=== PATIENT | male | born 1990 | race Hispanic/Latino ===

== ENCOUNTER 2018-01-15 09:47 | Emergency (ER) | payer OTHER, SELFPAY ==
[2018-01-15 09:56] VITALS: BP 141/81; PULSE 87; RESP 14; O2SAT 99; BMI 25.1
--- NOTE | 2018-01-15 10:02 | ED.WEAKNESS ---
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 Patient states approximately 1 hr prior to his arrival here in the ER he stood up from sitting down and had a sudden onset of left sided both leg and arm numbness. He did not describe any weakness. He states that his left hand feels ?cold? States that he had something similar but only in his left leg a while ago after performing a physical fitness test for the [employer]. He reports that over the past hour his symptoms have not changed. Denies any headache. Denies any balance issues. Has not tried anything for it. Related Data Allergies Allergy/AdvReac Type Severity Reaction Status Date / Time No Known Drug Allergies Allergy Verified 01/15/18 09:56 Review of Systems Constitutional Denies body ache(s), Denies chills, Denies fatigue, Denies fever(s), Denies headache(s) and Denies weakness Eyes Denies blurry vision, Denies diplopia, Denies irritation and Denies loss of vision ENT Ears, Nose, Mouth, and Throat: Denies vertigo, Denies dizziness, Denies facial pain, Denies headache(s), Denies nasal congestion, Denies disequilibrium and Denies sore throat Cardiovascular Denies chest pain, Denies syncope, Denies palpitations and Denies dyspnea Respiratory Denies cough and Denies dyspnea Gastrointestinal Gastrointestinal: Denies abdominal pain, Denies constipation, Denies diarrhea, Denies nausea and Denies vomiting Genitourinary Denies dysuria and Denies flank pain Musculoskeletal Denies back pain, Denies myalgias, Denies arthralgias, Denies joint swelling, Denies muscle cramps, Denies muscle weakness, Reports numbness and Denies stiffness Integumentary/Breasts Denies lesions and Denies rash Neurologic Denies confusion, Denies vertigo, Denies dizziness, Denies syncope, Denies headache(s), Denies focal weakness, Denies loss of vision, Denies memory loss, Reports numbness, Denies convulsions, Denies seizure-like activity, Reports sensory deficit (Numbness left arm and left leg), Denies disequilibrium and Denies weakness Psychiatric Denies anxiety, Denies confusion and Denies memory loss Endocrine Denies fatigue and Denies palpitations Hematologic/Lymphatic Denies easy bleeding and Denies easy bruising Allergic/Immunologic Denies urticaria [facility] Social History Smoking Status: Current every day smoker Exam Initial Vital Signs Initial Vital Signs: Vital Signs Pulse Rate 87 01/15/18 09:56 Respiratory Rate 14 01/15/18 09:56 Blood Pressure 141/81 H 01/15/18 09:56 Pulse Oximetry 99 01/15/18 09:56 Const General: cooperative, healthy appearing, comfortable, well developed, well groomed and No acute distress Nutritional Appearance: average body habitus Orientation: alert, awake and oriented x3 HENMT Head: normal to inspection, normocephalic and atraumatic Ears: hearing grossly normal bilaterally Nose: external nose normal Eyes General: appearance normal, both eyes and all related structures Pupils: PERRL EOM: EOM intact bilaterally Resp Effort & Inspection: normal respiratory effort Auscultation: clear to auscultation bilaterally Cardio Rate: regular rate Rhythm: regular rhythm Pulses: radial pulses present GI Inspection: non-distended Palpation: soft, No firm and No tender Back/Spine/Pelvis Back: normal to inspection, No back tenderness and No CVA tenderness Skin Lesions: no lesions Rashes: no rashes Neuro General: alert, awake, oriented x3, tone normal, moves all extremities, no meningeal signs and CN's II-XI intact bilaterally Cranial Nerves: CN's II-XI intact bilaterally and PERRL Cognition: normal cognition Speech: speech normal Other: Patient with difficulty doing heel to tee with his left lower extremity. Difficulty doing finger to nose with his left upper extremity. Strength 5/5 right upper and right lower extremity strength 4/5 left upper and left lower extremity. Decreased sensation to light touch left upper extremity left lower extremity. No facial changes with sensation. Patient able to stand. Romberg's negative. Extrem General: normal to inspection and capillary refill normal Psych Appearance: grossly normal, well kempt and not disheveled Scores NIH Stroke Scale Level of Conciousness: Alert, keenly responsive Ask month/age: Answers both questions correctly. Open/close eyes, close hand: Performs both tasks correctly Best gaze horizontal: Normal Visual shoemaker: No visual loss Facial palsy: Normal symetrical movement Left arm drift: No drift for full 10 sec Right arm drift: No drift for full 10 sec Left leg drift: Drifts down, not to bed Right leg drift: No drift for full 10 sec Limb ataxia: Present in two limbs Sensory on face/arms/legs: Mild to moderate sensory loss, can tell touch Best language: No aphasia, normal Dysarthria: Normal Extinction or inattention: No abnormality Total NIH Stroke scale score: 4 Course Orders Ordered: ED Orders 01/15/18 10:08 Basic Metabolic Panel Stat Complete Blood Count AUTO DIFF Stat Partial Thromboplastin Time Stat Prothrombin Time INR Stat 01/15/18 10:10 CT angio head and neck Stat 01/15/18 10:11 CT angio head and neck Stat Vital Signs - 8 hr 01/15/18 09:56 01/15/18 10:10 01/15/18 10:14 Temperature 98.3 F Pulse Rate 87 81 75 Respiratory Rate 14 18 18 Blood Pressure 141/81 H Blood Pressure [Left Arm] 136/89 H 128/89 H Pulse Oximetry 99 96 98 01/15/18 11:05 Temperature Pulse Rate 76 Respiratory Rate 15 Blood Pressure Blood Pressure [Left Arm] 124/94 H Pulse Oximetry 100 MDM - Weakness Lab Data Attestation: I reviewed the patient's lab results. Result diagrams: 01/15/18 10:08 01/15/18 10:08 Lab Results 01/15/18 01/15/18 01/15/18 Range/Units 10:08 10:08 10:08 WBC 9.3 (4.5-11.0) X10^3/uL RBC 5.04 (4.5-5.9) X10^6/uL Hgb 15.8 (13.5-17.5) g/dL Hct 45.1 (41-53) % MCV 89.6 (80-100) fL MCH 31.4 (26-34) PG MCHC 35.1 (30-36) % RDW 12.6 (11.6-14.8) % Plt Count 245 (150-400) X10^3/uL Neut % (Auto) 60.4 (50-75) % Lymph % (Auto) 30.0 (25-40) % [place] % (Auto) 6.5 (3-14) % Eos % (Auto) 2.4 (2-4) % Baso % (Auto) 0.7 (0-2) % Neut # (Auto) 5600 (4358-7266) /uL PT 13.2 H (10.1-12.7) SECONDS INR 1.2 (0.9-1.3) APTT 34 (26.4-36.2) SECONDS Sodium 138 (137-145) mmol/L Potassium 3.8 (3.4-5.1) mmol/L Chloride 101 (98-107) mmol/L Carbon Dioxide 27 (22-32) mmol/L BUN 16 (9-20) mg/dL Creatinine 0.90 (0.66-1.25) mg/dL Estimated GFR > 60.0 (>60) mL/min BUN/Creatinine Ratio 17.8 (6-22) Glucose 101 H (70-100) mg/dL Calcium 9.5 (8.4-10.2) mg/dL Imaging Data CT scan - head: Radiologist's impression: PROCEDURE: CT ANGIO HEAD AND NECK INDICATIONS: Left-sided weakness concern for CVA TECHNIQUE: Pre-contrast 4.5 mm thick sections acquired from the foramen magnum to the vertex. After the administration of intravenous contrast, 1 mm thick sections acquired from the aortic arch through the [place] of [place]. Post-contrast 4.5 mm thick sections then re-acquired from the foramen magnum to the vertex. 3-dimensional jpjqzwa-fcbalkgfd-iitksmtauc (MIP) and/or volume rendering reformats were acquired of the central intracranial vasculature and neck separately. COMPARISON: None. FINDINGS: Image quality: Excellent. BRAIN: CSF spaces: Ventricles are normal in size and shape. Basal cisterns are patent. No extra-axial fluid collections. There is prominent CSF space in the right posterior fossa behind the right cerebellum, most likely a arachnoid cyst. Brain: No midline shift. No intracranial bleeds or masses. Mahmood-white matter interface appears intact. Skull and face: Calvarium and facial bones appear intact, without suspicious lesions. Orbits appear normal. Sinuses: Sinuses and mastoids are clear. HEAD CT ANGIOGRAPHY: Anterior circulation: Intracranial internal carotid arteries are normal in size and flow. The flow within the paired anterior cerebral arteries is normal and symmetric. The flow within the middle cerebral arteries is normal and symmetric. The anterior communicating artery is seen. No aneurysms are seen. Posterior circulation: Visualized portions of the vertebral arteries demonstrate normal caliber, and join to form a normal appearing basilar artery. Flow within the posterior cerebral arteries is normal and symmetric. No aneurysms are seen. NECK CT ANGIOGRAPHY: Carotid system: The great vessels demonstrate a conventional anatomy as they arise from the aortic arch. The origins of the common carotid arteries appear patent. The common carotid arteries demonstrate normal caliber and courses. The bifurcation regions are both widely patent. The internal carotid arteries demonstrate normal calibers and courses. Posterior circulation: The origins of the vertebral arteries both appear widely patent. The more superior extracranial portions of both vertebral arteries also demonstrate normal courses and calibers. They join to form a normal appearing basilar artery. Soft tissues: Visualized neck soft tissues demonstrate no suspicious abnormalities. Bones: No suspicious bony lesions. Visualized cervical spine appears normally aligned. IMPRESSION: 1. No acute intracranial abnormalities. If clinical symptoms persist, MRI may be helpful. 2. Suspect an arachnoid cyst in the right posterior fossa. 3. Normal carotid arteries bilaterally. 4. Normal vertebral arteries bilaterally. 5. Normal anterior and posterior intracranial circulations. The results were discussed with Dr. Phelps in ER prior to dictation. Any quantitative measurements of stenosis were performed using NASCET criteria. Dictated by: Denise Salcedo M.D. on 01/15/2018 at 10:28 Approved by: Denise Salcedo M.D. on 01/15/2018 at 10:50 ECG Data Attestation: I personally reviewed and interpreted this ECG as follows: Prior ECG tracings: not available for review Interpretation: Sinus rhythm Ventricular rate is 78 Normal intervals Normal axis Normal QRS No ST T wave changes MDM Narrative Medical decision making narrative: Patient with an NIH scale 4. Head CT and CTA head and neck negative. Upon my re-evaluation after the patient had been here 1 hr he states that his symptoms have greatly improved. I feel given his age, his exam, his improvement of symptoms, his NIH score that tPA is not warranted. Patient was able to ambulate without any problems. Low suspicion for CVA. Also feel given his history and physical exam that a TIA is also unlikely. I discussed all this with the patient. Informed him that he needs to follow up with his medical department to obtain an MRI of his head. He was given return precautions. He expressed understanding and agreement with plan. Discharge Plan Departure Patient Disposition: Home, Self-Care Clinical Impression: Arm paresthesia, left, Left leg paresthesias Discharge Date/Time: 01/15/18 11:42 Interventions: ED Discharge Assessment Last Done: 01/15/18 11:42 Instructions: DI for Numbness/tingling Activity Restrictions/Additional Instructions: Recommend that you may contact with your medical department to discuss the indications for an MRI of your head. I would recommend this study as an outpatient. Continue all of your medications as directed. Return to the emergency department for any new or worsening symptoms Stand Alone Forms: Work/School Restrictions
[2018-01-15 10:10] VITALS: BP 136/89; PULSE 81; RESP 18; TEMP 36.8; O2SAT 96
--- NOTE | 2018-01-15 10:10 | DI.CT.S_ITS ---
PROCEDURE: CT ANGIO HEAD AND NECK INDICATIONS: Left-sided weakness concern for CVA TECHNIQUE: Pre-contrast 4.5 mm thick sections acquired from the foramen magnum to the vertex. After the administration of intravenous contrast, 1 mm thick sections acquired from the aortic arch through the [place] of [place]. Post-contrast 4.5 mm thick sections then re-acquired from the foramen magnum to the vertex. 3-dimensional mjrwngw-fkrtgucvg-buabsibhtb (MIP) and/or volume rendering reformats were acquired of the central intracranial vasculature and neck separately. COMPARISON: None. FINDINGS: Image quality: Excellent. BRAIN: CSF spaces: Ventricles are normal in size and shape. Basal cisterns are patent. No extra-axial fluid collections. There is prominent CSF space in the right posterior fossa behind the right cerebellum, most likely a arachnoid cyst. Brain: No midline shift. No intracranial bleeds or masses. Mahmood-white matter interface appears intact. Skull and face: Calvarium and facial bones appear intact, without suspicious lesions. Orbits appear normal. Sinuses: Sinuses and mastoids are clear. HEAD CT ANGIOGRAPHY: Anterior circulation: Intracranial internal carotid arteries are normal in size and flow. The flow within the paired anterior cerebral arteries is normal and symmetric. The flow within the middle cerebral arteries is normal and symmetric. The anterior communicating artery is seen. No aneurysms are seen. Posterior circulation: Visualized portions of the vertebral arteries demonstrate normal caliber, and join to form a normal appearing basilar artery. Flow within the posterior cerebral arteries is normal and symmetric. No aneurysms are seen. NECK CT ANGIOGRAPHY: Carotid system: The great vessels demonstrate a conventional anatomy as they arise from the aortic arch. The origins of the common carotid arteries appear patent. The common carotid arteries demonstrate normal caliber and courses. The bifurcation regions are both widely patent. The internal carotid arteries demonstrate normal calibers and courses. Posterior circulation: The origins of the vertebral arteries both appear widely patent. The more superior extracranial portions of both vertebral arteries also demonstrate normal courses and calibers. They join to form a normal appearing basilar artery. Soft tissues: Visualized neck soft tissues demonstrate no suspicious abnormalities. Bones: No suspicious bony lesions. Visualized cervical spine appears normally aligned. IMPRESSION: 1. No acute intracranial abnormalities. If clinical symptoms persist, MRI may be helpful. 2. Suspect an arachnoid cyst in the right posterior fossa. 3. Normal carotid arteries bilaterally. 4. Normal vertebral arteries bilaterally. 5. Normal anterior and posterior intracranial circulations. The results were discussed with Dr. Phelps in ER prior to dictation. Any quantitative measurements of stenosis were performed using NASCET criteria. Dictated by: Denise Salcedo M.D. on 01/15/2018 at 10:28 Approved by: Denise Salcedo M.D. on 01/15/2018 at 10:50
[2018-01-15 10:14] VITALS: BP 128/89; PULSE 75; RESP 18; O2SAT 98
[2018-01-15 10:17] LABS: Add Manual Diff / Slide Review NO; Basophils Percent Auto 0.7 % (0-2); Eosinophils Percent Auto 2.4 % (2-4); Hematocrit 45.1 % (41-53); Hemoglobin 15.8 g/dL (13.5-17.5); Mean Corpuscular HGB Conc 35.1 % (30-36); Mean Corpuscular Hemoglobin 31.4 PG (26-34); Mean Corpuscular Volume 89.6 fL (80-100); Monocytes Percent Auto 6.5 % (3-14); Neutrophils Absolute Auto 5600 /uL (3000-5900); Neutrophils Percent Auto 60.4 % (50-75); Platelet Count 245 X10^3/uL (150-400); Red Blood Cell Count 5.04 X10^6/uL (4.5-5.9); Red Cell Distribution Width 12.6 % (11.6-14.8); White Blood Cell Count 9.3 X10^3/uL (4.5-11.0)
[2018-01-15 10:24] LABS: INR 1.2 (0.9-1.3); Prothrombin Time 13.2 SECONDS (10.1-12.7)
[2018-01-15 10:26] LABS: PTT Partial Thromboplastin Tim 34 SECONDS (26.4-36.2)
[2018-01-15 10:31] LABS: BUN Creatinine Ratio 17.8 (6-22); Blood Urea Nitrogen 16 mg/dL (9-20); Calcium 9.5 mg/dL (8.4-10.2); Carbon Dioxide 27 mmol/L (22-32); Chloride 101 mmol/L (98-107); Estimated Glomerular Filt Rate > 60.0 mL/min (>60); Glucose 101 mg/dL (70-100); HEMOLYSIS 17 (0-50); Potassium 3.8 mmol/L (3.4-5.1); Sodium 138 mmol/L (137-145)
[2018-01-15 11:05] VITALS: BP 124/94; PULSE 76; RESP 15; O2SAT 100
== END 2018-01-15 11:42 | disposition home or self-care (01) ==
PROVIDERS: Emergency Provider Emergency Medicine; PCP Registered Nurse Diabetes Educator
DX: R20.2 Paresthesia of skin (principal)
CPT/HCPCS: 36591; 70496; 70498; 80048; 82962; 85025; 85610; 85730; 93005; 93041; 99283; 99285; Q9967

== ENCOUNTER → 2018-02-18 08:08 | Outpatient (CLI) | payer OTHER, SELFPAY ==
--- NOTE | 2018-02-18 | DI.MRI.S_ITS ---
PROCEDURE: MR ANGIO HEAD WO CON INDICATIONS: HEMIPLEGIA TECHNIQUE: Noncontrast axial 3-D [id number] MR angiogram, with 3-dimensional maximum intensity projection (MIP) reformats of the internal carotid arteries and posterior circulation then performed. COMPARISON: [facility], CT, CT ANGIO HEAD AND NECK, 01/15/2018, 9:59. [facility], MR, MR ANGIO NECK W CON, 02/18/2018, 8:45. FINDINGS: Image quality: Excellent. Anterior circulation: Intracranial internal carotid arteries demonstrate normal size and intraluminal flow signal. The flow within the paired anterior cerebral arteries is normal and symmetric. The flow within the middle cerebral arteries is normal and symmetric. The anterior communicating artery is seen. No stenoses, occlusions, or aneurysms. Posterior circulation: Visualized portions of the vertebral arteries demonstrate normal caliber, and join to form a normal appearing basilar artery. The flow within the posterior cerebral arteries is normal and symmetric. No stenoses, occlusions, or aneurysms. A right posterior fossa presumed arachnoid cyst is again seen. IMPRESSION: No significant intracranial arterial abnormality is seen. A presumed right posterior fossa arachnoid cyst is incidentally noted. Dictated by: Nate Mackenzie M.D. on 02/18/2018 at 9:17 Approved by: Nate Mackenzie M.D. on 02/18/2018 at 9:19
--- NOTE | 2018-02-18 | DI.MRI.S_ITS ---
PROCEDURE: MR ANGIO NECK W CON INDICATIONS: HEMIPLEGIA TECHNIQUE: Axial and sagittal TruFISP through the neck. Coronal dynamic MRA after the administration of contrast in the arterial and venous phases, with rotating 3-dimensional maximum intensity projection (MIP) reformats constructed from subtraction images. COMPARISON: [facility], MR, MR ANGIO HEAD WO CON, 02/18/2018, 8:35. [facility], CT, CT ANGIO HEAD AND NECK, 01/15/2018, 9:59. FINDINGS: Image quality: Diagnostic, with note made of motion artifact. Carotid system: Great vessels demonstrate a conventional anatomy as they arise from the aortic arch. The origins of the common carotid arteries appear normal. The calibers and courses of the common carotid arteries are likewise normal. The carotid bifurcations appear normal bilaterally. The internal carotid arteries are widely patent up to the [place] of [place]. Posterior circulation: The origins of the vertebral arteries are unremarkable. The more superior portions of the vertebral arteries demonstrate normal course and caliber. Vertebral arteries join to form a normal appearing basilar artery. Miscellaneous: Subclavian arteries are patent throughout. Pre-contrast images through the neck demonstrate no soft tissue abnormalities. IMPRESSION: No hemodynamically significant stenosis can be seen. Any quantitative measurements of stenosis were performed using NASCET criteria. Dictated by: Nate Mackenzie M.D. on 02/18/2018 at 9:19 Approved by: Nate Mackenzie M.D. on 02/18/2018 at 9:21
== END ==
PROVIDERS: PCP Registered Nurse Diabetes Educator; Visit Provider Registered Nurse Diabetes Educator
DX: G81.90 Hemiplegia, unspecified affecting unspecified side (principal)
CPT/HCPCS: 70544; 70548; A9579

== ENCOUNTER 2018-06-07 18:51 | Emergency (ER) | payer OTHER, SELFPAY ==
[2018-06-07 19:36] VITALS: BP 127/72; PULSE 101; RESP 18; TEMP 36.8; O2SAT 98; BMI 25.7
--- NOTE | 2018-06-07 22:54 | ED_ITS ---
HPI - Back Pain/Injury General Chief Complaint: Back Pain/Injury Stated Complaint: Back pain, left leg going numb Time Seen by Provider: 06/07/18 22:51 Source: patient Mode of arrival: ambulatory Limitations: no limitations History of Present Illness HPI Narrative: Patient is a 28-year-old male who presents with midthoracic back pain. He denies any injury or of bent. He says started today. He occasionally has some numbness tingling down his left leg. He had some dental procedure done 3 days ago he has been on antibiotics on taking Tylenol and ibuprofen for that. He has not had any Tylenol or ibuprofen today afebrile. He said that he did have a back injury a number of years ago he does have some symptoms from that. This is in a different Related Data Allergies Allergy/AdvReac Type Severity Reaction Status Date / Time No Known Drug Allergies Allergy Verified 06/07/18 19:38 Review of Systems Review of Systems GENERAL: Denies chills, fatigue, malaise, fever, sweats, travel HEENT: Denies sinus pain, ear pain, sore throat, difficulty swallowing, neck pain RESPIRATORY: Denies dyspnea, cough, wheezing, hemoptysis, sputum. CARDIOVASCULAR: Denies chest pain, palpitations, orthopnea, edema GASTROINTESTINAL: Denies nausea, vomiting, abdominal pain, diarrhea, constipation, melena. : Denies dysuria, frequency, incontinence, hematuria, urinary retention, flank pain. MUSCULOSKELETAL: See HPI SKIN: No rash, no erythema, no pruritus NEUROLOGIC: Denies weakness, dizziness, headache, numbness, change in speech, confusion PSYCHIATRIC: No concerning psychosocial issues. 12 point review of systems is negative except for those stated above and HPI [facility] Social History Smoking Status: Current every day smoker Exam Initial Vital Signs Initial Vital Signs: Vital Signs Temperature 98.2 F 06/07/18 19:36 Pulse Rate 101 H 06/07/18 19:36 Respiratory Rate 18 06/07/18 19:36 Blood Pressure 127/72 06/07/18 19:36 Pulse Oximetry 98 06/07/18 19:36 GENERAL: Sitting in rney no acute distress. He is able to stand without difficulty alert oriented cooperative HEENT: Head atraumatic,EOMI, pupils reactive, face symmetric, neck is supple CARDIOVASCULAR: Regular rate and rhythm without murmurs, rubs or gallops. RESPIRATORY: Breath sounds equal bilaterally, no wheezes rales or rhonchi. ABDOMEN: Soft, nontender. Normoactive bowel sounds all 4 quadrants. No guarding or rebound. BACK: Thoracic pain and midline the T10 is no step-off no sign of trauma no erythema. No lumbar pain no all pelvic pain : No CVA tenderness EXTREMITIES: Normal range of motion, no clubbing or edema. Neurovascularly intact NEUROLOGICAL: Alert and oriented x4.Normal gait and speech. Cranial nerves II through XII grossly intact. SKIN: Warm, dry, no laceration, no petechiae, no rashes or lesions. Course Orders Ordered: Discontinued Medications Ketorolac Tromethamine (Toradol) 60 mg IM NOW ONE Stop: 06/07/18 22:51 Last Admin: 06/07/18 22:59 Dose: 60 mg Vital Signs - 8 hr 06/07/18 19:36 06/07/18 23:29 Temperature 98.2 F Pulse Rate 101 H 55 L Respiratory Rate 18 18 Blood Pressure 127/72 Blood Pressure [Left Arm] 103/64 Pulse Oximetry 98 100 MDM - Back Pain/Injury MDM Narrative Medical decision making narrative: Patient denies any injury or trauma no sign of trauma. He is afebrile. Pain is improved with Toradol. Discharge Plan Departure Patient Disposition: Home Clinical Impression: Acute midline thoracic back pain Discharge Date/Time: 06/07/18 23:42 Interventions: ED Discharge Assessment Last Done: 06/07/18 23:41 Instructions: DI for Thoracic Back Pain Activity Restrictions/Additional Instructions: *You have been diagnosed with thoracic back pain *What to do: Increase activity as tolerated, heating pad *Continue to take medications as directed Motrin 800 mg every 8 hr if needed for pain with food *Follow up with your primary care provider in 2-3 days *Return to ER if you should have changes in bowel or bladder habits, weakness in extremities, worsening pain or any new, worsening or concerning symptoms Referrals: Yan Hernandez CNP [Primary Care Provider] -
[2018-06-07] MEDS: KETOROLAC 60 MG/2 ML VIAL IM (22:59)
[2018-06-07 23:29] VITALS: BP 103/64; PULSE 55; RESP 18; O2SAT 100
== END 2018-06-07 23:42 | disposition home or self-care (01) ==
PROVIDERS: Emergency Provider Emergency Medicine; PCP Registered Nurse Diabetes Educator
DX: M54.6 Pain in thoracic spine (principal)
CPT/HCPCS: 96372; 99282; 99283; J1885

== ENCOUNTER → 2018-06-17 13:39 | Outpatient (CLI) | payer OTHER, SELFPAY ==
--- NOTE | 2018-06-17 | DI.MRI.S_ITS ---
PROCEDURE: MR HEAD/BRAIN WO/W CON INDICATIONS: LT SIDE NUMBNESS TECHNIQUE: Noncontrast axial T1 spin echo, axial T2 fast spin echo, sagittal and axial FLAIR, coronal T2 fast spin echo, axial gradient echo, axial diffusion and ADC through the brain. After the administration of contrast, axial and coronal 3D VIBE or T1 spin echo with fat saturation through the brain. COMPARISON: [facility], MR, MR ANGIO NECK W CON, 02/18/2018, 8:45. [facility], MR, MR ANGIO HEAD WO CON, 02/18/2018, 8:35. FINDINGS: Image quality: Excellent. CSF Spaces: Basal cisterns are patent. No extra-axial fluid collections. Ventricles are normal in size and shape. Brain: No midline shift. No intracranial bleeds or masses. No abnormal intracranial enhancement. The brainstem appears normal. Diffusion-weighted images demonstrate no acute ischemic insults. No chronic ischemic insults. Normal intravascular flow voids are present. Redemonstration of right posterior fossa arachnoid cyst. Skull and face: Calvarial marrow is normal in signal. Orbits appear normal. Sinuses: Sinuses and mastoids appear clear. IMPRESSION: Right posterior fossa arachnoid cyst as before. No abnormal enhancement. No evidence of acute ischemia. Dictated by: Pradip Durant M.D. on 06/17/2018 at 15:02 Approved by: Pradip Durant M.D. on 06/17/2018 at 15:13
== END ==
PROVIDERS: PCP Registered Nurse Diabetes Educator; Visit Provider Registered Nurse Diabetes Educator
DX: R20.0 Anesthesia of skin (principal); G93.0 Cerebral cysts
CPT/HCPCS: 70553